=== PATIENT | female | born 1945 | race Caucasian/White ===

== ENCOUNTER → 2023-03-10 | Outpatient (CLI) | payer MEDICARE ==
--- NOTE | 2023-03-10 12:10 | CA ---
Exercise Stress Test Report Name: Vicky Hinojosa Exam Date: 03/10/2023 09:17 Exam Location: [place] Stress Ht (in): 66 Wt (lb): 170 BSA: 1.87 Ordering Phys: Valente Hyatt DO Referring Phys: Cherrie Fang PAC Technologist: Haroon Santana Age: 77 Gender: F : 1945 Procedure CPT: Indications: R07.9 ICD-10 Codes: Patient History: CHEST PAIN, DIFFICULTY IN BREATING, PALPITATIONS, ELEVATED CHOLESTEROL LEVELS, FAMILY HX OF HEART DISEASE Medications: Meds past 24 hrs: Pretest Chest Pain: STRESS TEST Larry Protocol Exercise Duration (min:sec): 05:[address] Depressions (mm): Angina Score: Harris Score: Resting HR (bpm): 94 Peak HR (bpm): 128 Resting BP (mmHg): 111 / 71 Peak BP (mmHg): 191 / 109 MPHR: 141 Target HR: 120 % MPHR: 91 METS: 7.1 Total Dose: Peak Dose: Atropine: Double Product: 70356 BP Response: Stress Termination: SHORT OF BREATH/FATIGUE Stress Symptoms: Stress Summary: ECG ANALYSIS Resting ECG: Normal sinus rhythm normal axis normal intervals with incomplete right bundle branch block Stress ECG: Patient exercised on Larry protocol for a total of 5 and half minutes achieving 7 mets 85% of predicted maximal heart rate without chest pain aren't diagnostic ST segment depression CONCLUSIONS Average exercise tolerance Negative stress test by EKG criteria Dr. Mathew Bell MD (Electronically Signed) Final Date: 10 March 2023 12:10
== END | disposition home or self-care (01) ==
LOC: RADNMMAIN 08:18
PROVIDERS: ATTEND Family Medicine
DX: R07.9 Chest pain, unspecified (principal); R06.02 Shortness of breath; E78.00 Pure hypercholesterolemia, unspecified; Z82.49 Family history of ischemic heart disease and other diseases of the circulatory system
CPT/HCPCS: 93017